=== PATIENT | female | born 1960 | race Caucasian/White ===

== ENCOUNTER → 2017-12-29 13:05 | Outpatient (CLI) | payer MEDICAID ==
[2016-07-18 06:43] VITALS: BMI 24.8
[~2017-12-29 13:05] MED LIST: CYMBALTA60 MG PO; HYDROCODON-ACE1 EAC7 PO; HYDROCODONE-APA1 TAB PO; LEVOTHYROXINE125 MCG PO; NORVASC5 MG PO; OMEPRAZOLE40 MG PO; XANAX1 MG PO
== END | disposition home or self-care (01) ==
LOC: D.CT 12-28 13:30
DX: R10.9 Unspecified abdominal pain (principal)

== ENCOUNTER → 2019-04-23 09:41 | Outpatient (CLI) | payer MEDICAID ==
[2016-07-18 06:43] VITALS: BMI 24.8
== END | disposition home or self-care (01) ==
LOC: D.RAD 04-16 08:30
PROVIDERS: ATTEND Internal Medicine Gastroenterology
DX: K59.09 Other constipation (principal); R10.84 Generalized abdominal pain; R11.2 Nausea with vomiting, unspecified